=== PATIENT | female | born 1970 | race Caucasian/White ===

== ENCOUNTER 2023-12-21 07:55 | Day surgery (SDC) | payer OTHER ==
[2023-12-16 09:43] LABS: ALBUMIN 3.9 G/DL (3.4-5.0); ALBUMIN/GLOBULIN RATIO 1.1 (1.1-1.5); ALKALINE PHOSPHATASE 132 IU/L (46-116); BLOOD UREA NITROGEN 9 MG/DL (7-18); BUN/CREATININE RATIO 12.5 (10.0-20.0); CALCIUM 8.9 MG/DL (8.5-10.1); CHLORIDE 106 MMOL/L (99-107); CREATININE 0.72 MG/DL (0.40-0.90); PRE OP ALT 28 U/L (30-65); PRE OP ANION GAP 8 (8-16); PRE OP AST 22 U/L (10-37); PRE OP BILIRUB, TOTAL 0.5 MG/DL (0.0-1.0); PRE OP GLUCOSE 100 MG/DL (70-104); PRE OP POTASSIUM 4.1 MMOL/L (3.4-5.1); PRE OP PROTIME 10.8 SECONDS (9.0-12.0); PRE OP SODIUM 141 MMOL/L (135-145); TOTAL CARBON DIOXIDE 27.4 MMOL/L (24-32); TOTAL PROTEIN 7.3 G/DL (6.4-8.2); eGFR 85 ML/MIN
[2023-12-16 09:52] LABS: BASOPHILS % (AUTO) 0.6 % (0-1); EOSINOPHILS # (AUTO) 0.2 X10'3 (0-0.9); EOSINOPHILS % (AUTO) 2.9 % (0-6); LYMPHOCYTES # (AUTO) 2.2 X10'3 (1.1-4.8); LYMPHOCYTES % (AUTO) 40.1 % (21-51); MEAN CORPUSCULAR HEMOGLOBIN 31.8 PG (27.0-31.0); MEAN CORPUSCULAR HGB CONC 33.4 g/dL (33.0-36.5); MEAN CORPUSCULAR VOLUME 95.1 FL (78-98); MEAN PLATELET VOLUME 8.9 FL (7.4-10.4); MONOCYTES # (AUTO) 0.4 X10'3 (0-0.9); MONOCYTES % (AUTO) 7.5 % (2-12); NEUTROPHILS # (AUTO) 2.7 X10'3 (1.8-7.7); NEUTROPHILS % (AUTO) 48.9 % (42-75); PRE OP HEMATOCRIT 45.9 % (35.0-45.0); PRE OP HEMOGLOBIN 15.3 g/dL (12.0-16.0); PRE OP PLATELET COUNT 206 X10'3 (140-440); PRE OP WHITE BLOOD COUNT 5.4 10'3 (4.8-10.8); RED BLOOD COUNT 4.82 X10'6 (4.20-5.60); RED CELL DISTRIBUTION WIDTH 12.6 % (11.5-14.5)
[2023-12-16 11:47] LABS: BILIRUBIN,URINE NEGATIVE (Neg); CLARITY,URINE CLEAR (Clear); COLOR,URINE YELLOW (Yellow); GLUCOSE, URINE NEGATIVE (Neg); KETONES,URINE NEGATIVE (Neg); LEUKOCYTE ESTERASE ,URINE NEGATIVE (Neg); NITRITES, URINE NEGATIVE (Neg); OCCULT BLOOD,URINE NEGATIVE (Neg); PH,URINE 6.5 (4.8-8.0); PROTEIN,URINE NEGATIVE (Neg); UROBILINOGEN,URINE 0.2 E.U/dL (0.2-1.0)
[2023-12-16 11:50] LABS: UA COLLECTION TYPE CLN CATCH MIDSTREAM
[2023-12-21] VITALS (10 sets, daily range): BP systolic 100–132; BP diastolic 63–80; PULSE 66–98; RESP 10–16; TEMP 97.3; O2SAT 93–100
[~2023-12-21] VITALS: Ht 154.9 cm; Wt 89.8 kg
[~2023-12-21 07:55] MED LIST: ACET-75 PO; COLLAGEN PEPTIDES; FLUT16SP2 BOTHNARES; GLUC-162 PO; LORA-641; MELO-102 PO; MULT-1085 PO; MULT-1130 PO; OMEP20CA16 PO; PSYL575P22 PO; VITA0.4T18
[2023-12-21] MEDS: ringers solution, lacted 1,000 ML IV SCH (08:41)
[2023-12-21] MEDS: famotidine 20mg tablet PO ONE (08:41)
[2023-12-21] MEDS ORDERED: proCHLORperazine 10 MG/2 ml inj IV PRN (11:00)
[2023-12-21] MEDS ORDERED: morphine 4 MG/ML inj SYRINge IV PRN (11:00)
[2023-12-21] MEDS ORDERED: meperidine/PF 25mg/ml syringe IV PRN ×2 (11:00)
[2023-12-21] MEDS ORDERED: ringers solution, lacted 1,000 ML IV SCH (11:00)
[2023-12-21] MEDS ORDERED: hydrALAZINE 20mg/ml inj. IV PRN (11:00)
[2023-12-21] MEDS ORDERED: labetalol 20mg/4ml (5mg/ml) syringe IV PRN (11:00)
[2023-12-21] MEDS ORDERED: morphine 2 MG/ML inj. syringe IV PRN (11:00)
[2023-12-21] MEDS ORDERED: acetaminophen 1,000mg/100ml IV 100 ML IV ONE (11:00)
[2023-12-21] MEDS ORDERED: ondansetron/PF 4mg/2ml inj IV PRN (11:00)
[2023-12-21] MEDS ORDERED: sevoflurane 250ml liquid IH ONE (11:34)
[2023-12-21] MEDS ORDERED: fentaNYL/PF 50MCG/1 ML 2ML syringe ONE (11:39)
[2023-12-21] MEDS ORDERED: midazolam 1 mg/ML 2ml injection ONE (11:39)
[2023-12-21] MEDS ORDERED: LIDOcaine 1%/PF 5ML 10 MG/ML VIAL ONE (12:07)
[2023-12-21] MEDS ORDERED: rocuronium 10mg/ml inj IV ONE (12:07)
[2023-12-21] MEDS ORDERED: ROPIVAcaine 0.5% (5mg/ml) 30ml vial ONE (12:07)
[2023-12-21] MEDS ORDERED: dexamethasone sod phosphate 4mg/ml inj. ONE (12:07)
[2023-12-21] MEDS ORDERED: propofol inj 20 ML IV ONE (12:07)
[2023-12-21] MEDS ORDERED: LIDOcaine 2% (20mg/ml) 5ml vial ONE (12:07)
[2023-12-21] MEDS ORDERED: ondansetron/PF 4mg/2ml inj ONE (12:08)
[2023-12-21] MEDS ORDERED: tranexamic acid 100mg/ml inj. ONE (12:10)
[2023-12-21] MEDS ORDERED: ePHEDrine 50MG/ML INJ. ONE (12:46)
== END 2023-12-21 16:00 | disposition home or self-care (01) ==
LOC: PAS 07:55
PROVIDERS: ATTEND Specialist
DX: M75.111 Incomplete rotator cuff tear or rupture of right shoulder, not specified as traumatic (principal); M75.41 Impingement syndrome of right shoulder; M25.511 Pain in right shoulder; Z79.899 Other long term (current) drug therapy; Z79.01 Long term (current) use of anticoagulants; G89.18 Other acute postprocedural pain
CPT/HCPCS: 23412; 29822; 29826; 36415; 64415; 71046; 80053; 81003; 82948; 85025; 85610; 85730; C1713; J0690; J1100; J2250; J2405; J2704; J2795; J3010; J3490; J7060; J7120; Z7506; Z7508; Z7512; A4565; A4618; A6449; A7000